=== PATIENT | female | born 1990 | race Caucasian/White ===

== ENCOUNTER 2021-10-05 05:00 | Inpatient (IN) | payer MEDICAID ==
[~2021-10-05] VITALS: Ht 157.5 cm; Wt 79.4 kg
[2021-10-05] MEDS ORDERED: LR 1,000 ML IV SCH (05:45)
[2021-10-05] MEDS ORDERED: CEFAZOLIN 2 GM IVPB PREMIX 50 ML IV ONE (05:45)
[2021-10-05] MEDS: TERBUTALINE SULFATE 1 MG/ML VIAL SUBCUT PRN ×2 (07:05→08:55)
[2021-10-05 07:34] LABS: BASOPHILS % (AUTO) 0.4 % (0.0-2.0); EOSINOPHILS # (AUTO) 0.1 K/uL (0.0-0.4); EOSINOPHILS % (AUTO) 0.9 % (0.0-4.0); HEMATOCRIT 26.9 % (36-48); LYMPHOCYTES # (AUTO) 2.3 K/uL (1.0-5.5); LYMPHOCYTES % (AUTO) 28.5 % (20.5-51.5); MEAN CORPUSCULAR HEMOGLOBIN 28 pg (27-31); MEAN CORPUSCULAR HGB CONC 34 % (32-36); MEAN CORPUSCULAR VOLUME 84 fL (79.0-98.0); MONOCYTES # (AUTO) 0.7 K/uL (0.0-1.0); MONOCYTES % (AUTO) 9.1 % (1.7-9.3); NEUTROPHILS % (AUTO) 61.1 % (40.0-70.0); PLATELET COUNT (AUTO) 219 K/uL (130-430); RED BLOOD CELL COUNT(AUTO) 3.18 MIL/uL (4.2-6.2); WHITE BLOOD COUNT (AUTO) 8.2 K/uL (4.8-10.8)
[2021-10-05 07:52] LABS: BILIRUBIN,URINE NEGATIVE (NEGATIVE); BLOOD, URINE NEGATIVE (NEGATIVE); COLOR,URINE YELLOW (YELLOW); GLUCOSE,URINE NEGATIVE (NEGATIVE); KETONES,URINE TRACE (NEGATIVE); LEUKOCYTE ESTERASE ,URINE TRACE (NEGATIVE); NITRITE, URINE NEGATIVE (NEGATIVE); PH,URINE 6.5 (5.0-8.0); PROTEIN URINE TRACE (NEGATIVE)
[2021-10-05 07:55] LABS: CLARITY/URINE SLIGHTLY HAZY (CLEAR)
[2021-10-05 08:00] LABS: BACTERIA,URINE MODERATE /HPF (None Seen); MUCUS,URINE 2+ /LPF (None Seen); RBC,URINE 0-3 /HPF (0-3)
[2021-10-05 08:11] LABS: BARBITURATE, URINE NEGATIVE (NEG <=200); BENZODIAZEPINE, URINE NEGATIVE (NEG <=150); CANNABINOID, URINE POSITIVE (NEG <=50); COCAINE, URINE NEGATIVE (NEG <=150); METHAMPHETAMINES SCREEN,URINE POSITIVE (NEG <=500); OPIATE, URINE NEGATIVE (NEG <=100); PHENCYCLIDINE SCREEN,URINE NEGATIVE (NEG <=25); UR TRICYCLIC ANTIDEPRESSANTS NEGATIVE (NEG <=300); URINE AMPHETAMINE POSITIVE (NEG <=500); URINE METHADONE NEGATIVE (NEG <=200); URINE OXYCODONE SCREEN NEGATIVE (NEG <=100); URINE PROPOXYPHENE SCREEN NEGATIVE (NEG <=300)
[2021-10-05] MEDS ORDERED: MAGNESIUM SULFATE IN WATER 500 ML IV PRN (09:00)
[2021-10-05] MEDS ORDERED: MAGNESIUM SULFATE IN WATER 100 ML IV ONE (09:00)
[2021-10-05] MEDS ORDERED: BETAMET ACET/BETAMET NA PH 30 MG/5 ML VIAL IM SCH (09:00)
[2021-10-05] MEDS ORDERED: AMPICILLIN SODIUM 2 GM VIAL ONE (09:28)
[2021-10-05] MEDS: AMPICILLIN SODIUM 2 GM in NS 100 ML IV SCH ×2 (09:32→15:41)
[2021-10-05] MEDS ORDERED: AZITHROMYCIN 500 MG in NS 250 ML IV SCH ×4 (12:00)
[2021-10-05] MEDS ORDERED: MORPHINE SULFATE 10 MG/ML VIAL IVP PRN (12:15)
[2021-10-06 06:06] LABS: HEPATITIS B SURFACE AG Negative (Negative); RUBELLA AB, IgG 2.94 index (Immune >0.99)
[2021-10-06 12:06] LABS: HEPATITIS B SURFACE AG Negative (Negative)
== END 2021-10-05 16:35 | disposition short-term general hospital (02) | DRG 566 ==
LOC: SPU 05:00
PROVIDERS: ADMIT Obstetrics & Gynecology; ATTEND Obstetrics & Gynecology
DX: O60.03 Preterm labor without delivery, third trimester (principal); O99.323 Drug use complicating pregnancy, third trimester; F15.10 Other stimulant abuse, uncomplicated; Z20.822 Contact with and (suspected) exposure to COVID-19; O34.211 Maternal care for low transverse scar from previous cesarean delivery; F12.10 Cannabis abuse, uncomplicated; Z3A.34 34 weeks gestation of pregnancy
CPT/HCPCS: 36415; 76805-TC; 80307; 81000; 85025; 86592; 86762; 86886; 86900; 86901; 87340; 87536; J0290; J0456; J0690; J0702; J2270; J3475; J7050